=== PATIENT | male | born 1985 | race Caucasian/White ===

== ENCOUNTER → 2017-11-05 | Outpatient (CLI) | payer OTHER ==
[2017-11-05 08:39] LABS: BUN/CREATININE RATIO 14.7 (6.0-26.0); POTASSIUM 4.1 mmol/L (3.6-5.0); TOTAL BILIRUBIN 0.8 mg/dL (0.2-1.3)
== END ==
LOC: LAB 08:11
PROVIDERS: Nurse Practitioner Family
DX: I10 Essential (primary) hypertension (principal)